=== PATIENT | female | born 1940 | race Caucasian/White ===

== ENCOUNTER 2024-10-11 08:21 | Inpatient (IN) | payer MEDICARE, MEDICAID ==
[2024-10-11] MEDS ORDERED: Sodium Chloride 0.9% 500 ML IV ONE (09:26)
[2024-10-11] MEDS: Sodium Chloride 0.9% 500 ML IV ONE (10:04)
[2024-10-11 10:05] LABS: CORONAVIRUS COVID-19 NAA NEGATIVE (NEGATIVE); INFLUENZA A NAA NEGATIVE (NEGATIVE); INFLUENZA B NAA NEGATIVE (NEGATIVE); RESPIRATORY SYNCYTIAL VIR NAA NEGATIVE (NEGATIVE)
[2024-10-11 10:30] LABS: BASOPHILS PERCENT AUTO 0.1 % (0.1-1.3); EOSINOPHILS ABSOLUTE AUTO 0.03 K/uL (0.00-0.40); EOSINOPHILS PERCENT AUTO 0.3 % (0.0-5.4); HEMATOCRIT 32.1 % (34.3-46.0); IMMATURE GRAN ABSOLUTE AUTO 0.05 K/uL (0.00-0.23); IMMATURE GRAN PERCENT AUTO 0.4 % (0.0-0.7); LYMPHOCYTES PERCENT AUTO 14.9 % (11.4-47.7); MEAN CORPUSCULAR HEMOGLOBIN 27.9 pg (31.6-35.5); MEAN CORPUSCULAR HGB CONC 34.3 g/dL (31.6-35.5); MEAN CORPUSCULAR VOLUME 81.5 fL (81.4-99.0); MONOCYTES ABSOLUTE AUTO 0.91 K/uL (0.20-0.90); NEUTROPHILS PERCENT AUTO 76.3 % (40.0-78.1); PLATELET COUNT,PLT 205 K/uL (130-375); RED BLOOD CELL COUNT 3.94 M/uL (3.77-5.24); WHITE BLOOD CELL COUNT,WBC 11.4 K/uL (3.2-11.0)
[2024-10-11 10:35] LABS: APPEARANCE,URINE SLIGHTLY CLOUDY (CLEAR); BILIRUBIN,URINE NEGATIVE (NEGATIVE); COLOR,URINE YELLOW (YELLOW); GLUCOSE,URINE NEGATIVE (NEGATIVE); KETONES,URINE NEGATIVE (NEGATIVE); LEUKOCYTE ESTERASE,URINE LARGE (NEGATIVE); NITRITE,URINE POSITIVE (NEGATIVE); OCCULT BLOOD,URINE MODERATE (NEGATIVE); PH,URINE 8.5 (5.0-8.0); PROTEIN,URINE 100 mg/dL (NEGATIVE); UROBILINOGEN,URINE 0.2 EU/dL (0.2-1.0)
[2024-10-11 10:35] LABS: BASOPHILS ABSOLUTE AUTO 0.01 K/uL (0.00-0.10)
[2024-10-11 10:42] LABS: BACTERIA,URINE MODERATE; EPITHELIAL CELLS,URINE MODERATE; MUCUS,URINE NOT SEEN; WBC,URINE >100 (0-5)
[2024-10-11 10:43] LABS: AMORPHOUS SEDIMENT,URINE FEW
[2024-10-11 10:52] LABS: A/G RATIO 0.8 (1.2-2.2); ALANINE AMINOTRANSFERASE,ALT 10 U/L (12-78); ALBUMIN 3.1 g/dL (3.4-5.0); ALKALINE PHOSPHATASE 74 U/L (46-116); ASPARTATE AMNIOTRANSFERASE,AST 24 U/L (15-37); BLOOD UREA NITROGEN,BUN 46 mg/dL (7-18); CALCIUM 9.3 mg/dL (8.5-10.1); CARBON DIOXIDE,CO2 30 mmol/L (21-32); CHLORIDE,CL 87 mmol/L (100-108); CREATININE 2.2 mg/dL (0.6-1.0); EST CRCL DRUG DOSING (CG) 16.44 mL/min; ESTIMATED GFR 22 mL/min (>60); GLUCOSE RANDOM 108 mg/dL (74-106); MAGNESIUM 2.2 mg/dL (1.8-2.4); PROTEIN TOTAL,TP 6.8 g/dL (6.4-8.2); SODIUM,NA 125 mmol/L (140-148); TROPONIN I HIGH SENSITIVITY 17.7 pg/mL (<=60.3)
[2024-10-11 10:55] LABS: ANION GAP 10.7 mmol/L (5.0-14.0); POTASSIUM,K 2.7 mmol/L (3.6-5.2)
[2024-10-11] MEDS: Levofloxacin/Dextrose 5%-Water 500 MG in Premix Bag 1 BAG IV ONE (11:16)
[2024-10-11] MEDS: NS with KCl 40mEq 1,000 ML IV SCH (11:58)
[2024-10-11] MEDS: cefTRIAXone 1 GM in Sodium Chloride 0.9% 50 ML IV SCH (12:43)
[2024-10-11] MEDS ORDERED: Potassium Chloride 10 MEQ in Premix Bag 1 BAG IV SCH (13:00)
[2024-10-11] MEDS: Potassium Chloride 20 MEQ Tab.ER PO ONE (14:57)
[2024-10-11] MEDS ORDERED: Acetaminophen 325 MG Tab PO PRN (15:37)
[2024-10-11] MEDS ORDERED: Sodium Chloride 0.9% 10 ML Syringe FLUSH PRN (15:37)
[2024-10-11] MEDS ORDERED: Ondansetron 4 MG/2 ML SDV IV PRN (15:37)
[2024-10-11] MEDS: Carbidopa/Levodopa 25-100 MG Tab PO SCH (16:05)
[2024-10-11] MEDS: Enoxaparin 30 MG/0.3 ML Syringe SUBCUT SCH (16:06)
[2024-10-11] MEDS: Potassium Chloride 20 MEQ Tab.ER ONE (16:12)
[2024-10-11] MEDS: Potassium Chloride 10 MEQ in Premix Bag 1 BAG IV SCH (19:08)
[2024-10-11] MEDS: Sodium Chloride 0.9% 1,000 ML IV SCH (19:55)
[2024-10-11] MEDS: Aspirin 81 MG Tab.Chew PO SCH (19:59)
[2024-10-11] MEDS: atorvaSTATin 20 MG Tab PO SCH (20:00)
[2024-10-11] MEDS: amLODIPine 5 MG Tab PO SCH (20:04)
[2024-10-11] MEDS: Melatonin 3 MG Tab PO PRN (21:20)
[2024-10-12 05:30] LABS: HEMATOCRIT 27.4 % (34.3-46.0); HEMOGLOBIN 9.1 g/dL (11.2-15.5); MEAN CORPUSCULAR HEMOGLOBIN 27.9 pg (31.6-35.5); MEAN CORPUSCULAR HGB CONC 33.2 g/dL (31.6-35.5); RED BLOOD CELL COUNT 3.26 M/uL (3.77-5.24); WHITE BLOOD CELL COUNT,WBC 5.1 K/uL (3.2-11.0)
[2024-10-12 05:45] LABS: CALCIUM 8.4 mg/dL (8.5-10.1); CREATININE 1.5 mg/dL (0.6-1.0); EST CRCL DRUG DOSING (CG) 24.11 mL/min; MAGNESIUM 1.7 mg/dL (1.8-2.4); POTASSIUM,K 4.1 mmol/L (3.6-5.2)
[2024-10-12 05:48] LABS: ANION GAP 12.1 mmol/L (5.0-14.0)
[2024-10-12] MEDS: Pantoprazole 40 MG Tab.CR PO SCH (07:34)
[2024-10-12] MEDS: Citalopram 20 MG Tab PO SCH (08:29)
[2024-10-12] MEDS: Magnesium Sulfate/Water Premix 2 GM in Premix Bag 1 BAG IV SCH (08:29)
[2024-10-12] MEDS: Potassium Chloride 10 MEQ Cap.ER PO SCH (08:29)
[2024-10-12] MEDS: Losartan 50 MG Tab PO SCH (08:32)
[2024-10-12] MEDS: Magnesium Oxide 400 MG Tab PO SCH ×2 (08:32→10:44)
[2024-10-12] MEDS: Metoprolol Succinate 50 MG Tab.ER PO SCH (08:32)
[2024-10-13 05:47] LABS: CALCIUM 8.4 mg/dL (8.5-10.1); CREATININE 1.3 mg/dL (0.6-1.0); EST CRCL DRUG DOSING (CG) 27.82 mL/min; MAGNESIUM 1.9 mg/dL (1.8-2.4)
[2024-10-14] MEDS: Polyethylene Glycol 3350 Powder 17 GM Packet PO PRN (08:11)
== END 2024-10-14 13:30 | DRG 690 ==
LOC: JP.ED 08:21 → JP.MS 12:27
PROVIDERS: ADMIT Hospitalist; ATTEND Hospitalist
DX: N39.0 Urinary tract infection, site not specified (principal); N17.9 Acute kidney failure, unspecified; I10 Essential (primary) hypertension; F02.84 Dementia in other diseases classified elsewhere, unspecified severity, with anxiety; I48.91 Unspecified atrial fibrillation; E78.00 Pure hypercholesterolemia, unspecified; E87.6 Hypokalemia; E86.0 Dehydration; I12.9 Hypertensive chronic kidney disease with stage 1 through stage 4 chronic kidney disease, or unspecified chronic kidney disease; N18.32 Chronic kidney disease, stage 3b; E83.42 Hypomagnesemia; B96.20 Unspecified Escherichia coli [E. coli] as the cause of diseases classified elsewhere; G20.A1 Parkinson's disease without dyskinesia, without mention of fluctuations; H54.7 Unspecified visual loss; Z88.8 Allergy status to other drugs, medicaments and biological substances; Z88.2 Allergy status to sulfonamides; Z79.899 Other long term (current) drug therapy; Z79.82 Long term (current) use of aspirin; Z86.16 Personal history of COVID-19; Z95.5 Presence of coronary angioplasty implant and graft; Z90.710 Acquired absence of both cervix and uterus; Z98.890 Other specified postprocedural states
CPT/HCPCS: 0241U; 36415; 70450; 70450-26; 71045; 71045-26; 80048; 80053; 81001; 83735; 84132; 84145; 84484; 85025; 85027; 87040; 87077; 87086; 87088; 87186; 93005; 93010; 96361; 96365; 96368; 97161-GP; 97530-GP; 99222; 99232; 99238; 99285; 99285-25; A9270-GY; J0696; J1650; J1956; J3475; J3480; J3490; J7030; J7040

== ENCOUNTER 2024-12-02 11:15 | Emergency (ER) | payer MEDICARE, MEDICAID | END 2024-12-02 12:20 | disposition home or self-care (01) | LOC: JP.ED 11:15 | DX: M25.561 Pain in right knee (principal); G89.29 Other chronic pain; I10 Essential (primary) hypertension; E78.00 Pure hypercholesterolemia, unspecified; Z86.16 Personal history of COVID-19; Z90.710 Acquired absence of both cervix and uterus; Z88.2 Allergy status to sulfonamides; Z88.8 Allergy status to other drugs, medicaments and biological substances; Z79.82 Long term (current) use of aspirin; Z79.899 Other long term (current) drug therapy; W01.0XXA Fall on same level from slipping, tripping and stumbling without subsequent striking against object, initial encounter | CPT/HCPCS: 70450; 70450-26; 72100; 72100-26; 72125; 72125-26; 73060-26-RT; 73060-RT; 73502-26-RT; 73502-RT; 73562-26-RT; 73562-RT; 76377; 76377-26; 99284 ==